=== PATIENT | female | born 1945 | race Caucasian/White ===

== ENCOUNTER 2020-08-03 17:33 | Emergency (ER) | payer OTHER ==
[~2020-08-03] VITALS: Ht 165.1 cm; Wt 98.0 kg
[2020-08-03] MEDS ORDERED: ONDANSETRON HCL 4MG/2ML INJ IV STA (19:13)
[2020-08-03] MEDS ORDERED: SODIUM CHLORIDE 0.9% 500 ML IV ONE ×2 (19:15→23:15)
[2020-08-03 20:39] LABS: BASOPHILS % 0.5 % (0.0-2.0); EOSINOPHILS % 0.6 % (0.0-5.0); HEMATOCRIT. 40.4 % (36.0-48.0); HEMOGLOBIN. 13.3 g/dL (12.0-16.0); LYMPHOCYTES % 11.7 % (20.0-50.0); MEAN CORPUSCULAR HEMOGLOBIN 28.6 pg (28.0-32.0); MEAN CORPUSCULAR VOLUME 86.8 fL (81.0-99.0); MEAN PLATELET VOLUME 8.9 fl (7.4-10.4); MONOCYTES % 5.2 % (2.0-8.0); PLATELET 303 x1000/uL (130-400); RED BLOOD CELL COUNT 4.66 mill/uL (4.2-5.4); RED CELL DISTRIBUTION WIDTH 13.1 % (11.6-14.6)
[2020-08-03 20:47] LABS: CHLORIDE 103 mEq/L (98-107)
[2020-08-03] MEDS ORDERED: LORAZEPAM 2MG/ML CPJ IV ONE (23:15)
[2020-08-03] MEDS ORDERED: ONDANSETRON HCL 4MG/2ML INJ IV ONE (23:15)
[2020-08-03 23:45] LABS: CLARITY URINE CLOUDY (CLEAR); COLOR URINE YELLOW (YELLOW); KETONES URINE 1+ (NEGATIVE); LEUKOCYTE ESTERASE URINE 3+ (NEGATIVE); NITRITE URINE NEGATIVE (NEGATIVE); OCCULT BLOOD URINE NEGATIVE (NEGATIVE); PROTEIN URINE TRACE (NEGATIVE); SPECIFIC GRAVITY URINE 1.024 (1.005-1.030); UROBILINOGEN URINE 0.2 E.U./dL (0.2-1.0)
[2020-08-04] MEDS ORDERED: CEFTRIAXONE 1 G PREMIX 50 ML IV ONE (00:30)
[2020-08-04 02:13] VITALS: BP 150/97
== END 2020-08-04 02:13 | disposition short-term general hospital (02) ==
LOC: ER 17:33
DX: N39.0 Urinary tract infection, site not specified (principal); R11.2 Nausea with vomiting, unspecified; E11.9 Type 2 diabetes mellitus without complications; Z90.49 Acquired absence of other specified parts of digestive tract
CPT/HCPCS: 36415; 71045; 74176; 80053; 81003; 83880; 84484; 85025; 87086; 93005; 96374; 96375; 96376; 99285; J0696; J2060; J2405; J7040